=== PATIENT | male | born 1940 | race Caucasian/White ===

== ENCOUNTER → 2017-01-26 | Outpatient (CLI) | payer OTHER ==
--- NOTE | 2017-01-26 16:24 | MRI ---
MRI BRAIN WITHOUT CONTRAST CLINICAL HISTORY: 76-year-old male with cognitive impairment. Dizziness and imbalance. COMPARISON: None. TECHNIQUE: Multiplanar, multisequence MR images of the brain were obtained without contrast. FINDINGS: There is mild atrophic appearance of the midbrain with subtle concavity of the cephalad surface with mild thinning of the tectal plate and concavity of the a lateral aspect of the midbrain bilaterally . There are multiple enlarged prevascular still aces within the lentiform nuclei. There is no evidence of diffusion restriction. The craniocervical junction is normal. Pituitary and optic nerve complex are normal. Multifocal confluent and punctate T2 FLAIR signal hyperintensities a re present within the periventricular and supraventricular white matter that are nonspecific in appe arance but most likely to represent microvascular white matter ischemic changes. Age advanced cortic al volume loss is present, with commensurate sulcal and ventricular prominence. There is symmetric s ignificant volume loss of the superior parietal lobule bilaterally. The major vascular flow voids, t o include the dural venous sinuses, are intact.. The basilar cisterns are normal. Bilateral lens implants. The orbits and globes are otherwise within normal limits. The paranasal sin uses, tympanic cavities and mastoids are clear. IMPRESSION: 1. 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 2. Chronic microvascular white matter ischemic disease. 3. No acute ischemic or hemorrhagic insult. Reported By:
[2017-01-26 17:26] LABS: FREE T4 (FREE THYROXINE) 1.38 ng/dL (0.76-1.46); TSH (3RD GENERATION) 1.131 uIU/mL (0.358-3.74)
[2017-01-30 07:22] LABS: T3 TOTAL 62 ng/dL (80-200); VITAMIN D 25 OH 20 ng/mL (30-80)
== END | disposition home or self-care (01) ==
LOC: RAD 14:36
PROVIDERS: ATTEND Psychiatry & Neurology Neurology
DX: G31.84 Mild cognitive impairment of uncertain or unknown etiology (principal); G31.89 Other specified degenerative diseases of nervous system; R41.3 Other amnesia; G25.2 Other specified forms of tremor
CPT/HCPCS: 36415; 70551; 82306; 82607; 82746; 84439; 84443; 84480; 86592; 95819

== ENCOUNTER → 2017-02-15 | Outpatient (CLI) | payer OTHER ==
--- NOTE | 2017-02-15 10:52 | MRI ---
HISTORY: Low back pain with pain in the bilateral hips. Study: MRI Lumbar spine without contrast. Comparison: None available. Technique: Multiplanar multi-sequence MRI of the lumbar spine was obtained. Sagittal T1, sagittal T 2, and stir weighted images, axial T1, and axial T2 images were obtained. Findings: Anatomic alignment without fracture or listhesis. Multilevel disc desiccation without significant di sc height loss. Type 2 Modic endplate changes are seen at L5-S1. Remaining bone marrow signal is unr emarkable. The conus medullaris terminates at L1. Partially visualized 1.9 cm cystic lesion within t he left kidney (axial T2 series image 4). Nonspecific soft tissue edema posterior to the lumbar spin e. Otherwise, the visualized soft tissues are unremarkable. T12 -- L1: No significant disc bulge, neural foraminal narrowing, or spinal canal stenosis. L1 -- L2: No significant disc bulge, neural foraminal narrowing, or spinal canal stenosis. L2 -- L3: No significant disc bulge, neural foraminal narrowing, or spinal canal stenosis. L3 -- L4: Broad-based disk bulge without significant neural foraminal narrowing or spinal canal sten osis. L4 -- L5: Broad-based disk bulge with associated moderate facet/ligamentum flavum hypertrophy causin g moderate bilateral neural foraminal narrowing and spinal canal stenosis to 9 mm. L5 -- S1: Broad-based disk bulge with associated moderate facet/ligamentum flavum hypertrophy causin g moderate left and mild right neural foraminal narrowing. No significant spinal canal stenosis. IMPRESSION: 1. Multilevel degenerative changes of the lumbar spine, which are worse at L4 through S1 with broad- based disc bulges causing mild to moderate neural foraminal narrowing. Spinal canal stenosis to 9 mm . 2. Partially visualized 1.9 cm left renal cystic lesion as above. Recommend dedicated renal ultrasou nd for further characterization. Reported By:
--- NOTE | 2017-02-17 13:04 | MRI ---
HISTORY: BILATERAL HIP PAIN. EXAM: 1. NON-CONTRAST MRI EXAM OF THE RIGHT HIP 2. NONCONTRAST MRI EXAM OF THE LEFT HIP TECHNIQUE: Multisequence and multiplanar T1 and T2 weighted sequences of the both hips were obtained without the administration of IV paramagnetic contrast at 1.5 [place]ula. COMPARISON: None available. FINDINGS: There is diffuse edema seen throughout the myotendinous junctions of the gluteus medius and minimus bilaterally (near the insertion site on the greater trochanter(s) of the femur) with partial thickne ss myotendinous junction tearing seen on the right > left. There is also abnormal \T\ focal muscle e garry seen within the left iliacus muscle. These findings are likely related to chronic micro-tears o f these muscles / chronic strains. A mild or developing infectious or inflammatory myositis should a lso be considered excluded (please correlate with CPK levels for assurance). There is no bone marrow edema appreciated. The hamstrings tendon complexes are intact bilaterally. T here is no evidence for a stress fracture or insufficiency fracture. No destructive bone marrow lesi on is seen. No pelvic ring disruption is observed. There is mild bilateral hip joint DJD without sig nificant chondromalacia or hip joint osteoarthritis. There is no evidence for avascular necrosis / o steonecrosis of either hip joint. No femoral head subchondral collapse is seen. The visible pelvic i ntraperitoneal soft tissues are unremarkable. No free pelvic fluid seen. IMPRESSION: There is diffuse edema seen throughout the myotendinous junctions of the gluteus medius and minimus bilaterally (near the insertion site on the greater trochanter(s) of the femur) with partial thickne ss myotendinous junction tearing seen on the right > left. There is also abnormal \T\ focal muscle e garry seen within the left iliacus muscle. These findings are likely related to chronic micro-tears o f these muscles / chronic strains. A mild or developing infectious or inflammatory myositis should a lso be considered excluded (please correlate with CPK levels for assurance). There is no bone marrow edema appreciated. The hamstrings tendon complexes are intact bilaterally. T here is no evidence for a stress fracture or insufficiency fracture. No destructive bone marrow lesi on is seen. No pelvic ring disruption is observed. There is mild bilateral hip joint DJD without sig nificant chondromalacia or hip joint osteoarthritis. There is no evidence for avascular necrosis / o steonecrosis of either hip joint. No femoral head subchondral collapse is seen. The visible pelvic i ntraperitoneal soft tissues are unremarkable. No free pelvic fluid seen. Reported By:
== END | disposition home or self-care (01) | DRG 301 ==
LOC: RAD 08:22
PROVIDERS: ATTEND Psychiatry & Neurology Neurology
DX: I73.89 Other specified peripheral vascular diseases (principal); M16.0 Bilateral primary osteoarthritis of hip; R60.1 Generalized edema; M48.06 Spinal stenosis, lumbar region; M51.26 Other intervertebral disc displacement, lumbar region
CPT/HCPCS: 72148; 73721